=== PATIENT | female | born 1990 | race Caucasian/White ===

== ENCOUNTER 2023-08-21 11:39 | Outpatient (CLI) | payer OTHER ==
--- NOTE | 2023-08-18 11:54 | NUR ---
LMOM WITH INSTRUCTIONS AND CALL BACK NUMBER
[~2023-08-21] VITALS: Ht 157.5 cm; Wt 126.0 kg
[2023-08-21] VITALS (7 sets, daily range): BP systolic 114–144; BP diastolic 66–92; PULSE 63–69; TEMP 98.4
[2023-08-21 14:22] LABS: GLUCOSE,CSF 55 mg/dL (40-70); TOTAL PROTEIN,CSF 41 mg/dL (15-45)
--- NOTE | 2023-08-21 14:24 | NUR ---
Pt remains free of headache or other concerns post LP. Bandaid remains clean, dry and intact. DC instructions reviewed with pt and mother, both express understanding. She ambulates to restroom with steady gait. She is assisted out to mother's car with belongings.
[2023-08-21 15:21] LABS: CSF APPEARANCE CLEAR; CSF COLOR COLORLESS; CSF MONONUCLEAR 100 % (70-100); CSF POLYMORPHONUCLEAR 0 % (0-6); CSF RBC 0 /mm3 (0-0)
== END 2023-08-21 14:24 | disposition home or self-care (01) ==
LOC: COL.RAD 11:39
PROVIDERS: Optometrist
DX: H47.10 Unspecified papilledema (principal)

== ENCOUNTER 2023-09-12 10:39 | Outpatient (RCR) | payer OTHER | END 2023-09-21 | disposition home or self-care (01) | LOC: WSOH | DX: S83.8X2D Sprain of other specified parts of left knee, subsequent encounter (principal); M17.12 Unilateral primary osteoarthritis, left knee; Y99.0 Civilian activity done for income or pay ==

== ENCOUNTER 2024-02-11 11:00 | Outpatient (RCR) | payer OTHER | END 2024-02-20 | LOC: WSPT | DX: M62.08 Separation of muscle (nontraumatic), other site (principal) ==